=== PATIENT | male | born 1955 | race Caucasian/White ===

== ENCOUNTER 2020-09-21 07:32 | Inpatient (IN) ==
[2020-09-21] MEDS ORDERED: NS 0.9% 1000 ml BAG 2,000 ML IV ONE (07:49)
[2020-09-21 08:37] LABS: Hematocrit 40 % (42-52); Hemoglobin 13.2 g/dL (14.0-18.0); Mean Corpuscular HGB Conc 33 g/dL (31-36); Mean Corpuscular Hemoglobin 27 pg (27-31); Mean Corpuscular Volume 80 fL (80-94); Mean Platelet Volume 8.5 fL (7.4-10.4); Platelet Count 392 10^3/uL (150-450); Red Blood Count 4.95 10^6 /uL (4.18-5.48); Red Cell Distribution Width 16 % (10-15); White Blood Count 27.8 10^3/uL (3.5-10.8)
[2020-09-21 09:01] LABS: ALT 49 U/L (7-52); AST 43 U/L (13-39); Albumin 3.8 g/dL (3.2-5.2); Albumin/Globulin Ratio 1.1 (1-3); Alkaline Phosphatase 98 U/L (34-104); Anion Gap 11 mmol/L (2-11); BUN/Creatinine Ratio 27.5 (8-20); Blood Urea Nitrogen 49 mg/dL (6-24); CO2 Carbon Dioxide 26 mmol/L (22-32); Calcium 9.5 mg/dL (8.6-10.3); Chloride 95 mmol/L (101-111); EGFR African American 46.5 (>60); EGFR Non-African American 38.4 (>60); Globulin 3.5 g/dL (2-4); Glucose 184 mg/dL (70-100); Magnesium 1.8 mg/dL (1.9-2.7); Sodium 132 mmol/L (135-145); Total Protein 7.3 g/dL (6.4-8.9)
[2020-09-21 09:07] LABS: TSH Ultra Thyroid Stim Horm 1.68 mcIU/mL (0.34-5.60)
[2020-09-21 09:23] LABS: Troponin I 0.05 ng/mL (<0.03)
[2020-09-21] MEDS ORDERED: Potassium Chlor 20 meq TAB.ER PO ONE ×2 (09:33→13:13)
[2020-09-21 09:37] LABS: ABS Basophils 0.2 10^3/ul (0-0.2); ABS Eosinophils 0.2 10^3/ul (0-0.6); ABS Lymphocytes 1.8 10^3/ul (1.0-4.8); ABS Monocytes 2.5 10^3/ul (0-0.8); ABS Neutrophils 23.1 10^3/ul (1.5-7.7); Eosinophil % 0.7 %; Lymphocyte % 6.4 %
[2020-09-21] MEDS ORDERED: NS 0.9% 1000 ml BAG 1,000 ML IV ONE (11:40)
[2020-09-21] MEDS ORDERED: Piperacillin/Tazobac ADVAN 3.375 GM in NS 0.9% 100 ml BAG 100 ML IVPB ONE (11:40)
[2020-09-21 11:54] LABS: Troponin I 0.04 ng/mL (<0.03)
[2020-09-21 12:05] LABS: Urine Appearance Clear; Urine Bilirubin Negative (Negative); Urine Blood Negative (Negative); Urine Color Yellow; Urine Glucose Negative (Negative); Urine Ketones Negative (Negative); Urine Nitrite Negative (Negative); Urine Protein 1+(30 mg/dL) (Negative); Urine Specific Gravity 1.014 (1.010-1.030); Urine Urobilinogen Negative (Negative)
[2020-09-21 12:13] LABS: Activated Partial Thrombo Time 31.8 seconds (26.0-38.0); INR 1.25 (0.82-1.09)
[2020-09-21 12:14] LABS: Urine Bacteria Absent (Absent); Urine Red Blood Cell Trace(0-2/hpf) (Absent); Urine Squamous Epithelial Cell Present (Absent); Urine White Blood Cell Trace(0-5/hpf) (Absent)
[2020-09-21] MEDS: NS 0.9% 1000 ml BAG 1,000 ML IV SCH (15:48)
[2020-09-21] MEDS: Meropenem 1 GM PREMIX(*) 1 GM/50 ML BAG IV SCH (15:48)
[2020-09-21] MEDS: Heparin 5000 UNITS/ML 1 mL VIAL SUBCUT SCH ×2 (15:53→22:22)
[2020-09-21] MEDS ORDERED: Ondansetron 4 mg VIAL 2 MG/ML 2 ml VIAL IV PRN (17:20)
[2020-09-21] MEDS ORDERED: Meropenem 1 GM PREMIX(*) 1 GM/50 ML BAG IV SCH (18:00)
[2020-09-21] MEDS: Guanfacine ER 1 mg TAB PO SCH (22:21)
[2020-09-22] MEDS: Meropenem 1 GM PREMIX(*) 1 GM/50 ML BAG IV SCH ×2 (02:49→18:09)
[2020-09-22] MEDS: NS 0.9% 1000 ml BAG 1,000 ML IV SCH ×2 (03:00→19:03)
[2020-09-22 06:18] LABS: Hematocrit 36 % (42-52); Hemoglobin 11.9 g/dL (14.0-18.0); Mean Corpuscular HGB Conc 33 g/dL (31-36); Mean Corpuscular Hemoglobin 26 pg (27-31); Mean Corpuscular Volume 79 fL (80-94); Mean Platelet Volume 8.6 fL (7.4-10.4); Platelet Count 397 10^3/uL (150-450); Red Blood Count 4.54 10^6 /uL (4.18-5.48); Red Cell Distribution Width 15 % (10-15); White Blood Count 19.2 10^3/uL (3.5-10.8)
[2020-09-22 06:20] LABS: ABS Basophils 0.1 10^3/ul (0-0.2); ABS Eosinophils 0.3 10^3/ul (0-0.6); ABS Lymphocytes 1.8 10^3/ul (1.0-4.8); ABS Monocytes 1.7 10^3/ul (0-0.8); ABS Neutrophils 15.4 10^3/ul (1.5-7.7); Eosinophil % 1.3 %; Lymphocyte % 9.2 %
[2020-09-22 06:32] LABS: Calcium 8.6 mg/dL (8.6-10.3); EGFR African American 90.5 (>60); EGFR Non-African American 74.8 (>60); Magnesium 1.8 mg/dL (1.9-2.7); Potassium 2.8 mmol/L (3.5-5.0)
[2020-09-22] MEDS ORDERED: Magnesium Sulfate 2 gm BAG 2 GM/50 ML BAG IVPB ONE (08:47)
[2020-09-22] MEDS: KCL 20 MEQ/100 ML IVPREMIX 20 MEQ/100 ML BAG IV SCH ×3 (09:28→18:33)
[2020-09-22] MEDS ORDERED: Propofol 10 MG/ML 20 ML BTL ONE (14:39)
[2020-09-22] MEDS ORDERED: fentaNYL 250 mcg/5 ml 50 MCG/ML 5 ml VIAL (250 MCG) ONE (14:39)
[2020-09-22] MEDS ORDERED: Midazolam 2 mg/2 ml VIAL 1 mg/ml 2 ml VIAL (2 mg) ONE (14:39)
[2020-09-22] MEDS ORDERED: Rocuronium 50 mg VIAL 10 mg/ml 5 ml VIAL (50 mg) ONE ×2 (14:39→16:13)
[2020-09-22] MEDS ORDERED: Lidocaine 2% PF 5 ML VIAL ONE (14:39)
[2020-09-22] MEDS ORDERED: Ondansetron 4 mg VIAL 2 MG/ML 2 ml VIAL ONE (14:39)
[2020-09-22] MEDS ORDERED: Bupivacaine 0.25% EPI 200,000 30 ML SDV ONE (14:49)
[2020-09-22] MEDS ORDERED: Succinylcholine 200 mg VIAL 20 mg/ml 10 ml VIAL (200 mg) ONE (15:02)
[2020-09-22] MEDS ORDERED: Dexamethasone IV 4 MG/ML VIAL 1 ml VIAL ONE (15:22)
[2020-09-22 15:25] LABS: C Reactive Protein 219.71 mg/L (<8.01)
[2020-09-22] MEDS ORDERED: Naloxone 0.4 mg VIAL 0.4 mg/ml 1 ml VIAL IV PRN (16:30)
[2020-09-22] MEDS ORDERED: HYDROmorphone 1 MG/1 ML SYRINGE IV PRN ×2 (16:30→21:07)
[2020-09-22] MEDS ORDERED: Ondansetron 4 mg VIAL 2 MG/ML 2 ml VIAL IV PRN (16:30)
[2020-09-22] MEDS ORDERED: fentaNYL 100 mcg/2 ml 50 MCG/ML VIAL ONE ×2 (17:03→17:27)
[2020-09-22] MEDS: HYDROmorphone 1 MG/1 ML SYRINGE IV PRN ×2 (17:05→17:40)
[2020-09-22] MEDS: fentaNYL 100 mcg/2 ml 50 MCG/ML VIAL IV PRN ×5 (17:14→17:53)
[2020-09-22] MEDS ORDERED: HYDROmorphone 1 MG/1 ML SYRINGE ONE (17:15)
[2020-09-22] MEDS ORDERED: Piperacillin/Tazobac ADVAN 3.375 GM in NS 0.9% 100 ml BAG 100 ML IV ONE (18:00)
[2020-09-22] MEDS ORDERED: Zosyn per Pharmacy NOTE FOLLOW UP SCH (18:00)
[2020-09-22] MEDS: Guanfacine ER 1 mg TAB PO SCH (20:07)
[2020-09-22] MEDS ORDERED: oxyCODONE/Acetamin 5/325 mg TAB PO PRN (21:06)
[2020-09-22] MEDS ORDERED: HYDROmorphone 0.5 MG/0.5 ML SYRINGE IV PRN (21:06)
[2020-09-23] MEDS: ZOSYN 3.375 GM Q8H per EXTENDED INFUSION IV SCH ×3 (01:20→16:19)
[2020-09-23 05:22] LABS: ABS Lymphocytes 1.8 10^3/ul (1.0-4.8); ABS Neutrophils 12.8 10^3/ul (1.5-7.7); Eosinophil % 0.1 %; Hematocrit 34 % (42-52); Hemoglobin 11.1 g/dL (14.0-18.0); Lymphocyte % 11.6 %; Mean Corpuscular HGB Conc 33 g/dL (31-36); Mean Corpuscular Hemoglobin 26 pg (27-31); Mean Corpuscular Volume 80 fL (80-94); Mean Platelet Volume 8.1 fL (7.4-10.4); Platelet Count 396 10^3/uL (150-450); Red Blood Count 4.22 10^6 /uL (4.18-5.48); Red Cell Distribution Width 16 % (10-15); White Blood Count 15.7 10^3/uL (3.5-10.8)
[2020-09-23 05:37] LABS: BUN/Creatinine Ratio 21.8 (8-20); Calcium 8.4 mg/dL (8.6-10.3); EGFR African American 89.4 (>60); EGFR Non-African American 73.9 (>60); Magnesium 2.1 mg/dL (1.9-2.7); Potassium 3.4 mmol/L (3.5-5.0)
[2020-09-23] MEDS: NS 0.9% 1000 ml BAG 1,000 ML IV SCH ×2 (05:54→20:43)
[2020-09-23] MEDS: KCL 20 MEQ/100 ML IVPREMIX 20 MEQ/100 ML BAG IV SCH ×3 (11:12→19:57)
[2020-09-23] MEDS: Guanfacine ER 1 mg TAB PO SCH (20:00)
[2020-09-24] MEDS: ZOSYN 3.375 GM Q8H per EXTENDED INFUSION IV SCH ×2 (01:03→08:28)
[2020-09-24 07:41] LABS: Hematocrit 34 % (42-52); Hemoglobin 11.3 g/dL (14.0-18.0); Mean Corpuscular HGB Conc 34 g/dL (31-36); Mean Corpuscular Hemoglobin 27 pg (27-31); Mean Corpuscular Volume 80 fL (80-94); Platelet Count 477 10^3/uL (150-450); Red Blood Count 4.24 10^6 /uL (4.18-5.48); Red Cell Distribution Width 16 % (10-15); White Blood Count 10.1 10^3/uL (3.5-10.8)
[2020-09-24 08:02] LABS: Calcium 8.1 mg/dL (8.6-10.3); EGFR African American 109.1 (>60); EGFR Non-African American 90.2 (>60)
[2020-09-24] MEDS: KCL 20 MEQ/100 ML IVPREMIX 20 MEQ/100 ML BAG IV SCH ×2 (08:13→08:14)
[2020-09-24 08:22] LABS: Potassium 3.7 mmol/L (3.5-5.0)
[2020-09-24] MEDS: NS 0.9% 1000 ml BAG 1,000 ML IV SCH (08:28)
[2020-09-24 08:43] LABS: ABS Basophils 0.1 10^3/ul (0-0.2); ABS Eosinophils 0.4 10^3/ul (0-0.6); ABS Neutrophils 5.6 10^3/ul (1.5-7.7); Eosinophil % 3.8 %; Lymphocyte % 29.9 %
[2020-09-24] MEDS ORDERED: Amoxicillin/Clavul 500/125 TAB (Augmentin 500 mg tab) PO SCH (09:00)
[2020-09-24 11:23] VITALS: BP 152/82
== END 2020-09-24 14:30 | disposition home or self-care (01) | DRG 854 ==
LOC: ED 07:32 → SSU 13:09
PROVIDERS: ADMIT Internal Medicine; ATTEND Internal Medicine